=== PATIENT | female | born 1995 | race Caucasian/White ===

== ENCOUNTER 2023-11-24 21:13 | Emergency (ER) | payer MEDICARE, SELFPAY ==
[2023-11-24 21:21] VITALS: BP 140/87; PULSE 100; RESP 20; TEMP 36.1; O2SAT 98
--- NOTE | 2023-11-24 22:03 | ED.GENADULT ---
HPI - General Adult General Chief complaint: Upper Respiratory Infection Stated complaint: sick History of Present Illness HPI narrative: 28yo woman h/o asthma presents with numerous upper respiratory infection symptoms - congestion, nasal burning, cough, sore throat, chest tightness, wheezing for the past 5 days. Related Data Allergies Allergy/AdvReac Type Severity Reaction Status Date / Time Latex, Natural Rubber Allergy Mild hives Verified 11/06/23 10:08 keflex Allergy Mild vomiting Uncoded 11/06/23 10:08 Review of Systems Review of Systems: All systems reviewed & are unremarkable except as noted in HPI and below Constitutional: Constitutional: Reports chills and Reports fever(s) ENT: Denies dysphagia and Denies dizziness Cardiovascular: Cardiovascular: Denies chest pain Respiratory: Respiratory: Reports chest congestion, Reports cough, Reports dyspnea and Reports wheezing Gastrointestinal: Gastrointestinal: Denies abdominal pain PMFSH Past Medical History Medical History Hypertension Social History Social History Smoking status: Never smoker Alcohol intake: never Substance use: never Substance use type: marijuana Exam Const: General: healthy appearing and no acute distress Nutritional Appearance: well nourished Orientation/consciousness: patient oriented x3 HENMT: Head: normal to inspection Eyes: Conjunctivae: conjunctivae normal Resp: Effort & Inspection: normal respiratory effort and not labored Auscultation: clear to auscultation bilaterally Cardio: Rate: regular rate Rhythm: regular rhythm Heart sounds: no murmurs GI: Inspection: non-distended Skin: General skin exam: normal color, no jaundice and no pallor Extrem: General: no clubbing, cyanosis or edema Course Vital Signs Vital signs: Vital Signs Temperature 36.1 C L 11/24/23 21:21 Pulse Rate 100 11/24/23 21:21 Respiratory Rate 11/24/23 21:21 Blood Pressure 140/87 11/24/23 21:21 Pulse Oximetry 98 11/24/23 21:21 Oxygen Delivery Room Air 11/24/23 21:21 Temperature 36.1 C L 11/24/23 21:21 Pulse Rate 100 11/24/23 21:21 Respiratory Rate 20 11/24/23 21:21 Blood Pressure 140/87 11/24/23 21:21 Pulse Oximetry 98 11/24/23 21:21 Oxygen Delivery Room Air 11/24/23 21:21 Medical Decision Making MDM Narrative Medical decision making narrative: acute upper respiratory infection with pain from rhinosinusitis; clear lungs Vital Signs Vital Signs: Vital Signs Temperature 36.1 C L 11/24/23 21:21 Pulse Rate 100 11/24/23 21:21 Respiratory Rate 20 11/24/23 21:21 Blood Pressure 140/87 11/24/23 21:21 Pulse Oximetry 98 11/24/23 21:21 Oxygen Delivery Room Air 11/24/23 21:21 Temperature 36.1 C L 11/24/23 21:21 Pulse Rate 100 11/24/23 21:21 Respiratory Rate 20 11/24/23 21:21 Blood Pressure 140/87 11/24/23 21:21 Pulse Oximetry 98 11/24/23 21:21 Oxygen Delivery Room Air 11/24/23 21:21 Lab Data Labs: Lab Results 11/24/23 Range/Units 21:35 Influenza A (RT-PCR) Pending Influenza B (RT-PCR) Pending RSV (RT-PCR) Pending SARS-CoV-2 RNA (RT-PCR) Pending Group A Strep (PCR) Pending Discharge Plan Discharge Clinical Impression: Acute viral syndrome Patient Disposition: Home, Self-Care Condition: Stable Instructions: Antibiotic Form Additional Instructions: Your symptoms are the result of a viral respiratory infection. The viral infection inflames the tissues of your nose, sinuses, throat, trachea, and lungs. Take the prescribed steroi Dexamethasone to help your symptoms. For congestion, take the prescribed Pseudoephrine as needed. You can continue to take Albuterol as needed for wheezing and Ibuprofen as needed for pain and fever. Prescriptions: New dexamethasone 4 mg tablet
[2023-11-24 22:07] LABS: Strep Group A RT-PCR NOT DETECTED (Negative)
[2023-11-24] MEDS: dexAMETHasone SOD PHOS INJ 10 MG/ML 1 ML VIAL IM (22:09)
[2023-11-24] MEDS: KETOROLAC (*BKC) 60 MG/2 ML VIAL IM (22:12)
[2023-11-24 22:14] LABS: SARS-CoV-2 RNA PCR Negative (Negative)
[2023-11-24 22:15] LABS: Influenza A QL RT-PCR Negative (Negative); Influenza B QL RT-PCR Negative (Negative); RSV RNA, RT-PCR Negative (Negative)
--- NOTE | 2023-11-24 22:17 | PC.NURSE ---
patient medicated per order, see MAR. update provided including lab results.
== END 2023-11-24 22:30 | disposition home or self-care (01) ==
PROVIDERS: Emergency Provider Emergency Medicine; PCP Family Medicine
DX: B34.9 Viral infection, unspecified (principal); I10 Essential (primary) hypertension; Z20.822 Contact with and (suspected) exposure to COVID-19
CPT/HCPCS: 87637; 87651; 96372; 99284; J1100; J1885

== ENCOUNTER 2023-11-27 09:30 | Outpatient (CLI) | payer MEDICARE, SELFPAY ==
[2023-11-27 09:48] LABS: Basophils Absolute Auto 0.01 K/mm3 (0.00-0.10); Basophils Percent Auto 0.1 % (0.0-1.0); Hematocrit 39.6 % (35.0-49.0); Hemoglobin 12.8 g/dL (12.0-15.0); Immature Granulocyte Absolute 0.02 K/mm3 (0.00-0.00); Immature Granulocyte Percent A 0.3 % (0.0-0.0); Lymphocytes Absolute Auto 1.97 K/mm3 (1.10-4.50); Mean Corpuscular HGB Conc 32.3 g/dL (32.0-36.0); Mean Corpuscular Hemoglobin 27.7 pg (27.0-31.0); Mean Corpuscular Volume 85.7 fL (78.0-102.0); Mean Platelet Volume 8.6 fl (9.2-11.8); Monocytes Absolute Auto 0.31 K/mm3 (0.10-0.90); Monocytes Percent Auto 4.1 % (2.0-11.0); Neutrophils Absolute Auto 5.3 K/mm3 (1.7-7.2); Neutrophils Percent Auto 69.5 % (50.0-70.0); Platelet Count Result 290 K/mm3 (150-420); Red Blood Count 4.62 M/mm3 (4.20-5.40); Red Cell Distribution Width 13.6 % (11.6-14.4); White Blood Count 7.6 K/mm3 (4.8-10.8)
[2023-11-27 10:00] LABS: Hemoglobin A1C 5.2 % (<5.7)
[2023-11-27 10:44] LABS: HIV 1 P24 AG Negative (Negative); HIV 1/2 AB Negative (Negative)
[2023-11-27 11:00] LABS: Alanine Aminotransferase 33 U/L (14-59); Albumin Level 3.7 g/dL (3.4-5.0); Alkaline Phosphatase 49 U/L (46-116); Anion Gap 8 mmol/L (8-16); Aspartate Amino Transferase 15 U/L (15-37); Bilirubin,Total 0.3 mg/dL (0.00-1.00); Blood Urea Nitrogen 14 mg/dL (7-18); Carbon Dioxide 28 mmol/L (21-32); Chloride 106 mmol/L (98-108); Cholesterol 185 mg/dL (0-200); Estimated Glomerular Filt Rate > 60; Glucose 108 mg/dL (70-99); HDL Direct 44 mg/dL (40-60); LDL Cholesterol Calculated 130 mg/dL (<130); Osmolality Calculated 295 mOsm/kg (285-295); Potassium 4.4 mmol/L (3.5-5.1); Sodium 142 mmol/L (136-145); Total Protein 7.1 g/dL (6.4-8.2); Triglycerides 57 mg/dL (0-150)
[2023-11-27 11:03] LABS: Thyroid Stimulating Hormone Reflex 0.32 u/IU/mL (0.36-3.74)
[2023-11-27 11:22] LABS: Free T4 Free Thyroxine Reflex 1.21 ng/dL (0.76-1.46)
[2023-12-06 07:47] LABS: Herpes Simplex Type 1 DNA PCR NOT DETECTED; Herpes Simplex Type 2 DNA PCR NOT DETECTED
[2023-12-07 19:53] LABS: Hepatitis A Antibody IgM Nonreactive; Hepatitis B Core Antibody Nonreactive (Nonreactive); Hepatitis B Surface Antigen Nonreactive (Nonreactive); Hepatitis C Virus Antibody Nonreactive
== END 2023-11-27 09:31 | disposition home or self-care (01) ==
LOC: CHSLAB 09:32
PROVIDERS: PCP Family Medicine; Visit Provider Family Medicine
DX: R74.01 Elevation of levels of liver transaminase levels (principal); Z20.2 Contact with and (suspected) exposure to infections with a predominantly sexual mode of transmission; I10 Essential (primary) hypertension; E11.9 Type 2 diabetes mellitus without complications
CPT/HCPCS: 36415; 80053; 80061; 80074; 83036; 84439; 84443; 85025; 87529; 87661; 87806

== ENCOUNTER 2023-12-02 18:52 | Emergency (ER) | payer MEDICARE, SELFPAY ==
[2023-12-02] VITALS (15 sets, daily range): BP systolic 131–163; BP diastolic 91–108; PULSE 73–113; RESP 12–24; TEMP 36.6; O2SAT 98–100
--- NOTE | ~2023-12-02 | CT_ITS ---
EXAMINATION: CT brain wo con DATE: 12/02/2023 19:31 INDICATION: numbness right face . TECHNIQUE: Computed tomography (CT) of the head was performed without intravenous contrast. The mA wa s adjusted according to patient size. Iterative reconstruction technique was employed. The dose-lengt h product was 605.33 mGy-cm. COMPARISON: None. FINDINGS: No acute intracranial hemorrhage or extra-axial fluid collection. No hydrocephalus, mass, or herniation. No acute ischemic infarct. Unremarkable dural venous sinus attenuation. No acute osseous abnormality. The aerated spaces are clear. IMPRESSION: No acute intracranial process. Reviewed, dictated and finalized at location K. [employer]
--- NOTE | ~2023-12-02 | XR_ITS ---
EXAMINATION: XR chest 2V Exam Date/Time: 12/02/2023 19:20 DOG CATCHER HISTORY: sob Comparison: None. RESULT: Lines, tubes, and devices: None. Lungs and pleura: Clear. Cardiomediastinal silhouette: Normal. Other: No acute osseous or upper abdominal finding. IMPRESSION: No acute cardiopulmonary process. Reviewed, dictated and finalized at location K. CATCHER
--- NOTE | 2023-12-02 18:53 | ECG_ITS ---
Measurements Intervals [place] Rate: 81 P: 0 DC: 110 QRS: 54 QRSD: 89 T: 42 QT: 388 QTc: 453 Interpretive Statements SINUS RHYTHM WITH SINUS ARRHYTHMIA WITH SHORT DC INTERVAL NO PREVIOUS ECG AVAILABLE FOR COMPARISON Electronically Signed On 12-03-2023 16:17:10 VIDEO NETWORK ENGINEER by Comfort Aguilar M.D.
--- NOTE | 2023-12-02 18:56 | ED.SOB ---
HPI - SOB/Dyspnea General Chief Complaint: Shortness of Breath/Dyspnea Stated Complaint: high blood pressure Time Seen by Provider: 12/02/23 18:53 Source: patient Mode of arrival: ambulatory Limitations: no limitations History of Present Illness HPI Narrative: Patient is a 28-year-old female with general anxiety here with right face and right chest numbness since last night. She also has lots of anxiety going on at this time and some increased blood pressure and she stopped her medicine 3 days ago for blood pressure. Also some shortness of breath where she has been seeing her primary doctor for the last 2 weeks and is on antibiotics and steroids and inhalers. MD elicited complaint: shortness of breath and pain with inspiration Onset (ago): week(s) (2) Context: recent illness Timing: constant Severity: moderate Exacerbating factors: nothing Relieving factors: nothing Associated symptoms: cough, wheezing, sense of impending doom and chest congestion Treatment prior to arrival: bronchodilator Related Data Home oxygen amount: none Home Medications Medication Instructions Recorded Confirmed lamotrigine 150 mg tablet 150 mg PO DAILY 11/24/23 12/02/23 (Lamictal) lisinopril 10 mg tablet (Zestril) 10 mg PO DAILY 11/24/23 12/02/23 olanzapine 10 mg tablet (Zyprexa) 10 mg PO DAILY 11/24/23 12/02/23 olanzapine 5 mg tablet (Zyprexa) 5 mg PO DAILY 11/24/23 12/02/23 Allergies Allergy/AdvReac Type Severity Reaction Status Date / Time Latex, Natural Rubber Allergy Mild hives Verified 12/02/23 19:00 keflex Allergy Mild vomiting Uncoded 12/02/23 19:00 Review of Systems Review of Systems: All systems reviewed & are unremarkable except as noted in HPI and below Constitutional: Constitutional: Reports no additional constitutional complaints Eyes: Eyes: Reports no additional eye complaints ENT: Reports system reviewed and no additional complaints, except as documented Cardiovascular: Cardiovascular: Reports no additional cardiovascular complaints Respiratory: Respiratory: Reports no additional respiratory complaints Gastrointestinal: Gastrointestinal: Reports no additional gastrointestinal complaints Genitourinary: Genitourinary: Reports no additional female genitourinary complaints Musculoskeletal: Musculoskeletal: Reports no additional musculoskeletal complaints Integumentary/Breasts: Skin/Breast: Reports system reviewed and no additional complaints, except as docu Neurologic: Reports system reviewed and no additional complaints, except as documented Psychiatric: Psychiatric: Reports no additional psychiatric complaints Endocrine: Endocrine: Reports no additional endocrine complaints Hematologic/Lymphatic: Hematologic/Lymphatic: Reports no additional hematologic/lymphatic complaints Allergic/Immunologic: Allergic/Immunologic: Reports no additional allergic/immunologic complaints [facility] Past Medical History Medical History Hypertension Social History Social History Smoking status: Never smoker Alcohol intake: never Substance use: never Substance use type: marijuana Exam Const: General: healthy appearing Nutritional Appearance: well nourished Orientation/consciousness: patient oriented x3 HENMT: Head: normal to inspection Ears: external ears normal Face/Nose/Sinus: Normal external nose present Eyes: Conjunctivae: conjunctivae normal Pupils: Equal, round and reactive pupils present EOM: EOMs intact bilaterally Neck: Neck: normal visual inspection Chest: Chest palpation & inspection: normal inspection of the chest Resp: Effort & Inspection: normal respiratory effort and not labored Auscultation: clear to auscultation bilaterally and no crackles Cardio: Rate: regular rate Rhythm: regular rhythm Heart sounds: no murmurs GI: Inspection: non-distended GI Palp: Yes Soft to palpation an
[2023-12-02 19:12] LABS: Basophils Absolute Auto 0.02 K/mm3 (0.00-0.10); Basophils Percent Auto 0.2 % (0.0-1.0); Eosinophils Absolute Auto 0.06 K/mm3 (0.02-0.50); Eosinophils Percent Auto 0.5 % (1.0-6.0); Hematocrit 43.4 % (35.0-49.0); Hemoglobin 13.9 g/dL (12.0-15.0); Immature Granulocyte Absolute 0.07 K/mm3 (0.00-0.00); Immature Granulocyte Percent A 0.6 % (0.0-0.0); Lymphocytes Absolute Auto 4.79 K/mm3 (1.10-4.50); Lymphocytes Percent Auto 38.7 % (18.0-42.0); Mean Corpuscular Hemoglobin 27.4 pg (27.0-31.0); Mean Corpuscular Volume 85.4 fL (78.0-102.0); Mean Platelet Volume 8.6 fl (9.2-11.8); Monocytes Absolute Auto 0.78 K/mm3 (0.10-0.90); Monocytes Percent Auto 6.3 % (2.0-11.0); Neutrophils Absolute Auto 6.7 K/mm3 (1.7-7.2); Neutrophils Percent Auto 53.7 % (50.0-70.0); Platelet Count Result 375 K/mm3 (150-420); Red Blood Count 5.08 M/mm3 (4.20-5.40); Red Cell Distribution Width 13.7 % (11.6-14.4); White Blood Count 12.4 K/mm3 (4.8-10.8)
[2023-12-02 19:26] LABS: D Dimer 0.37 mg/L (0.19-0.50)
[2023-12-02] MEDS: IPRATROPIUM 0.5 MG/ALBUTEROL SULFATE 2.5 MG AMPUL.NEB 3 ML INHALATION (19:26)
[2023-12-02 19:32] LABS: Alanine Aminotransferase 35 U/L (14-59); Alkaline Phosphatase 48 U/L (46-116); Anion Gap 12 mmol/L (8-16); Aspartate Amino Transferase 14 U/L (15-37); Bilirubin,Total 0.5 mg/dL (0.00-1.00); Blood Urea Nitrogen 15 mg/dL (7-18); Calcium 8.9 mg/dL (8.5-10.1); Carbon Dioxide 26 mmol/L (21-32); Chloride 100 mmol/L (98-108); Estimated CRCL calculation 88 ml/min; Estimated Glomerular Filt Rate > 60; Glucose 104 mg/dL (70-99); Osmolality Calculated 286 mOsm/kg (285-295); Potassium 3.7 mmol/L (3.5-5.1); Sodium 138 mmol/L (136-145); Total Protein 7.7 g/dL (6.4-8.2)
[2023-12-02 19:35] LABS: Troponin I < 4.0 ng/L (0.00-60.4)
[2023-12-02 19:51] LABS: SARS-CoV-2 RNA PCR Negative (Negative)
[2023-12-02 19:53] LABS: Appearance Urine Slightly Cloudy (Clear); Bilirubin Urine 1+ (Negative); Blood Urine 3+ (Negative); Color Urine Yellow (Yellow); Glucose Urine UA Negative (Negative); Ketones Urine 1+ (Negative); Leukocyte Esterase Ur 1+ LEU/UL (Negative); Nitrate Urine Negative (Negative); Protein Urine 1+ (Negative); Specific Grav Ur >= 1.030 (1.010-1.020)
[2023-12-02 19:58] LABS: Add Urine Microscopic? YES; RBC Urine 21-50 /hpf (0-2); Squamous Epithelial Cell Urine Many /hpf (Few)
[2023-12-02 19:59] LABS: Bacteria Urine 2+ /hpf; Pregnancy On Board Control Positive; Urine Pregnancy Test Negative
[2023-12-02 19:59] LABS: Influenza A QL RT-PCR Negative (Negative); Influenza B QL RT-PCR Negative (Negative); RSV RNA, RT-PCR Negative (Negative)
[2023-12-02] MEDS: methylPREDNISolone SOD SUCC 125 MG VIAL IV PUSH (19:59)
[2023-12-02] MEDS: diphenhydrAMINE HCl INJ 50 MG/ML VIAL 25 MG IV PUSH (19:59)
--- NOTE | 2023-12-02 20:04 | PC.NURSE ---
pt continues with something is wrong, right chest , neck and face feels numb , while smacking self in the face. dr valiente in in room with pt.
[2023-12-02] MEDS: levoFLOXacin 500 MG TABLET PO (20:19)
--- NOTE | 2023-12-05 14:28 | PC.NURSE ---
urine culture reviewed, not indicative of uti
== END 2023-12-02 20:20 | disposition home or self-care (01) ==
PROVIDERS: Emergency Provider Emergency Medicine; PCP Nurse Practitioner Family
DX: J40 Bronchitis, not specified as acute or chronic (principal); R20.0 Anesthesia of skin; N39.0 Urinary tract infection, site not specified; I10 Essential (primary) hypertension; Z79.899 Other long term (current) drug therapy; Z20.822 Contact with and (suspected) exposure to COVID-19
CPT/HCPCS: 36415; 70450; 71046; 80053; 81001; 81025; 84484; 85025; 85380; 87077; 87086; 87088; 87637; 93005; 94640; 96374; 96375; 99284; A9270; J1200; J2930

== ENCOUNTER 2023-12-05 12:00 | Outpatient (CLI) | payer MEDICARE, SELFPAY ==
[2023-12-05 16:30] LABS: Trichomonas Vag PCR NOT DETECTED (NOT DETECTE)
[2023-12-05 16:53] LABS: Chlamydia trachomatis NOT DETECTED (NOT DETECTE); Neisseria gonorrhoeae PCR NOT DETECTED (NOT DETECTE)
== END 2023-12-05 12:01 | disposition home or self-care (01) ==
LOC: CHSLAB 12:01
PROVIDERS: PCP Family Medicine; Visit Provider Family Medicine
DX: Z11.3 Encounter for screening for infections with a predominantly sexual mode of transmission (principal); Z20.2 Contact with and (suspected) exposure to infections with a predominantly sexual mode of transmission
CPT/HCPCS: 87491; 87591; 87661

== ENCOUNTER 2024-03-19 12:21 | Emergency (ER) | payer MEDICARE, SELFPAY ==
[2024-03-19] VITALS (17 sets, daily range): BP systolic 135–152; BP diastolic 81–102; PULSE 70–88; RESP 16–18; TEMP 36–36.3; O2SAT 81–100
--- NOTE | 2024-03-19 12:43 | ED.ABDPAIN ---
HPI - Abdominal Pain General Chief Complaint: Nausea/Vomiting/Diarrhea Stated Complaint: vomiting Time Seen by Provider: 03/19/24 12:34 Source: patient Mode of arrival: ambulatory History of Present Illness HPI narrative: Patient is a 29-year-old female with a significant past medical history presents today with nausea vomiting. Patient states she has had nausea vomiting for the last week now. She states that she has a history of high blood pressure and also takes multiple psych meds. She states that she is taking blood pressure meds in the last 3 months because she cannot find them and the pharmacy said that she already filled it but she could not find them today she is waiting to get a refill on those. She states she is not taking her psych meds in the last 3 days because she is unable to hold anything down because of nausea vomiting. She states she is very dehydrated and even is not able hold down liquids or Pedialyte. She denies any abdominal pain. MD elicited complaint: other ( Nausea vomiting) Onset (ago): day(s) Radiation: none Exacerbating factors: vomiting Relieving factors: nothing Associated symptoms: nausea and vomiting Related Data Allergies Allergy/AdvReac Type Severity Reaction Status Date / Time Latex, Natural Rubber Allergy Mild hives Verified 03/19/24 14:28 keflex Allergy Mild vomiting Uncoded 03/19/24 14:28 Review of Systems Review of Systems: All systems reviewed & are unremarkable except as noted in HPI and below Constitutional: Constitutional: Reports as per HPI Eyes: Eyes: Reports no additional eye complaints ENT: Reports system reviewed and no additional complaints, except as documented Cardiovascular: Cardiovascular: Reports no additional cardiovascular complaints Respiratory: Respiratory: Reports no additional respiratory complaints Gastrointestinal: Gastrointestinal: Reports as per HPI, Reports nausea and Reports vomiting Genitourinary: Genitourinary: Reports no additional female genitourinary complaints Musculoskeletal: Musculoskeletal: Reports no additional musculoskeletal complaints Integumentary/Breasts: Skin/Breast: Reports system reviewed and no additional complaints, except as docu Neurologic: Reports system reviewed and no additional complaints, except as documented Psychiatric: Psychiatric: Reports no additional psychiatric complaints Endocrine: Endocrine: Reports no additional endocrine complaints Hematologic/Lymphatic: Hematologic/Lymphatic: Reports no additional hematologic/lymphatic complaints Allergic/Immunologic: Allergic/Immunologic: Reports no additional allergic/immunologic complaints PMFSH Past Medical History Medical History Hypertension Social History Social History Smoking status: Never smoker Alcohol intake: never Substance use: never Substance use type: marijuana Exam Const: General: healthy appearing and no acute distress Nutritional Appearance: well nourished Orientation/consciousness: patient oriented x3 Limitations: no limitations HENMT: Head: normal to inspection Ears: external ears normal Face/Nose/Sinus: Normal external nose present Face and sinus: normal facial exam Eyes: Conjunctivae: conjunctivae normal Pupils: Equal, round and reactive pupils present EOM: EOMs intact bilaterally Neck: Neck: normal visual inspection Chest: Chest palpation & inspection: normal inspection of the chest Resp: Effort & Inspection: normal respiratory effort Auscultation: clear to auscultation bilaterally Cardio: Rate: regular rate Rhythm: regular rhythm GI: GI Palp: Yes Soft to palpation Auscultation: normal bowel sounds : General: Yes bladder normal to palpation Back/Spine/Pelvis: Back: no CVA tenderness Skin: General skin exam: normal color Rashes: no rashes Wounds: no wounds Neuro: 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
[2024-03-19] MEDS: ONDANSETRON INJ 4 MG/2 ML VIAL IV PUSH (12:52)
[2024-03-19] MEDS: PANTOPRAZOLE SODIUM IV 40 MG VIAL IV PUSH (12:53)
[2024-03-19] MEDS: SODIUM CHLORIDE 0.9% IV 1,000 ML 999 ML IV CONT ×2 (12:53→14:03)
[2024-03-19 13:01] LABS: Basophils Absolute Auto 0.01 K/mm3 (0.00-0.10); Basophils Percent Auto 0.1 % (0.0-1.0); Hemoglobin 14.5 g/dL (12.0-15.0); Immature Granulocyte Absolute 0.02 K/mm3 (0.00-0.00); Immature Granulocyte Percent A 0.2 % (0.0-0.0); Lymphocytes Absolute Auto 2.39 K/mm3 (1.10-4.50); Lymphocytes Percent Auto 24.3 % (18.0-42.0); Mean Corpuscular Hemoglobin 28.2 pg (27.0-31.0); Mean Corpuscular Volume 85.4 fL (78.0-102.0); Mean Platelet Volume 8.5 fl (9.2-11.8); Monocytes Absolute Auto 0.67 K/mm3 (0.10-0.90); Monocytes Percent Auto 6.8 % (2.0-11.0); Neutrophils Absolute Auto 6.74 K/mm3 (1.70-7.20); Neutrophils Percent Auto 68.6 % (50.0-70.0); Platelet Count Result 349 K/mm3 (150-420); Red Blood Count 5.15 M/mm3 (4.20-5.40); Red Cell Distribution Width 13.2 % (11.6-14.4); White Blood Count 9.8 K/mm3 (4.8-10.8)
[2024-03-19] MEDS: lisinopriL 10 MG TABLET PO (13:07)
[2024-03-19 13:20] LABS: Alanine Aminotransferase 21 U/L (14-59); Albumin Level 3.8 g/dL (3.4-5.0); Alkaline Phosphatase 53 U/L (46-116); Anion Gap 13 mmol/L (4-12); Aspartate Amino Transferase 13 U/L (15-37); Bilirubin,Total 0.6 mg/dL (0.00-1.00); Blood Urea Nitrogen 8 mg/dL (7-18); Calcium 9.6 mg/dL (8.5-10.1); Carbon Dioxide 24 mmol/L (21-32); Chloride 102 mmol/L (98-108); Estimated CRCL calculation 103 ml/min; Estimated Glomerular Filt Rate > 60; Glucose 103 mg/dL (70-99); Lipase 40 U/L (16-77); Osmolality Calculated 286 mOsm/kg (285-295); Potassium 3.8 mmol/L (3.5-5.1); Sodium 139 mmol/L (136-145); Total Protein 8.2 g/dL (6.4-8.2)
[2024-03-19 13:23] LABS: Lactic Acid Reflex 1.5 mmol/L (0.4-2.0)
[2024-03-19 13:52] LABS: Pregnancy On Board Control Positive; Urine Pregnancy Test Negative
[2024-03-19] MEDS: PROCHLORPERAZINE EDISYLATE 10 MG/2 ML VIAL IV PUSH (14:02)
[2024-03-19 14:25] LABS: Appearance Urine Cloudy (Clear); Blood Urine 1+ (Negative); Color Urine Yellow (Yellow); Glucose Urine UA Negative (Negative); Ketones Urine Trace (Negative); Protein Urine Trace (Negative)
[2024-03-19 14:26] LABS: Add Urine Microscopic? YES; Bacteria Urine 2+ /hpf; Bilirubin Urine Negative (Negative); Leukocyte Esterase Ur 3+ LEU/UL (Negative); Nitrate Urine Negative (Negative); RBC Urine 0-2 /hpf (0-2); Squamous Epithelial Cell Urine Few /hpf (Few); Trichomonas Urine Present /hpf; Urobilinogen Urine Negative mg/dL (0.2-1.0); WBC Urine >75 /hpf (0-3)
--- NOTE | 2024-03-21 17:37 | PC.NURSE ---
pt called re: culture reports. no answer. message left to return call
--- NOTE | 2024-03-21 18:29 | PC.NURSE ---
final std panel report and final urine culture report reviewed. >[id number] Group b Streptococcus isolated in urine. pt prescribed macrobid at discharge. sensitivity report shows susceptibility to macrobid. no change in tx of UTI. std panel shows positive for trichomonas. erp dr bailey reviewed these reports and new prescription ordered. pt contacted via phone and instructed to continue the macrobid to completion and to fill new rx of flagyl 500mg 2x day for 7 days. new prescription called in to [facility] in [place]. pt voices understanding.
== END 2024-03-19 14:39 | disposition home or self-care (01) ==
PROVIDERS: Emergency Provider Family Medicine; PCP Nurse Practitioner Family
DX: K52.9 Noninfective gastroenteritis and colitis, unspecified (principal); N39.0 Urinary tract infection, site not specified; I10 Essential (primary) hypertension
CPT/HCPCS: 36415; 80053; 81001; 81025; 83605; 83690; 85025; 87077; 87086; 87088; 96361; 96374; 96375; 99284; A9270; C9113; J0780; J2405; J7030

== ENCOUNTER 2024-03-24 07:58 | Outpatient (CLI) | payer MEDICARE, SELFPAY ==
--- NOTE | 2024-03-24 08:16 | ECG_ITS ---
Test Date: 2024-03-24 08:23:46 Measurements Intervals [place] Rate: 81 P: 73 VT: 108 QRS: 67 QRSD: 93 T: 60 QT: 385 QTc: 448 Interpretive Statements SINUS RHYTHM WITH SHORT VT INTERVAL No previous ECG available for comparison Electronically Signed On 03-24-2024 14:22:33 CDT by Comfort Aguilar M.D.
--- NOTE | 2024-04-01 21:51 | WPDPFTINT ---
PFT Procedure Performed PFT Procedure Performed Spirometry with Pre/Post Bronchodilator Plethysmography (Lung Vol) Diffusing Cap (DLCO) Flow Vol Loop PFT Interpretation DOS: 03/24/2024 REQUESTING: Lora Overton APRN REASON FOR TESTING: Shortness of breath PULMONARY FUNCTION TESTS The patient had variable effort during testing. Spirometry: The pre-bronchodilator FEV1 is 3.56 L, 109%. The pre-bronchodilator FVC is 4.36 L, 111%. The FEV1/FVC ratio is 82%. After bronchodilator, the FEV1 is unchanged. The FVC is 4.24 L, 108%, a 3% decrease. The FEV1/FVC ratio is 84%. Lung volumes: The total lung capacity is 5.65 L, 98%. The residual volume is 1.29 L, 72%. The RV/TLC is 23%. Airway resistance is mildly elevated. Diffusion: DLCO is 32.8, 104%. The DLCO/VA is 6.68, 144%. Flow volume loop: The flow volume loop is normal on the 1st attempt, and subsequent inspiratory limbs are progressively more irregular in shape. IMPRESSION: This full pulmonary function test shows normal spirometry without airflow obstruction, without response to bronchodilator, normal lung volumes and normal diffusion. No prior studies for comparison. Christel Moreno MD
== END 2024-03-24 07:59 | disposition home or self-care (01) ==
PROVIDERS: PCP Nurse Practitioner Family; Visit Provider Nurse Practitioner Family
DX: R61 Generalized hyperhidrosis (principal); R06.02 Shortness of breath
CPT/HCPCS: 36415; 84443; 93005; 94060; 94726; 94729

== ENCOUNTER 2024-04-09 09:51 | Outpatient (CLI) | payer MEDICARE, SELFPAY ==
[2024-04-09 10:25] LABS: Appearance Urine Clear (Clear); Bilirubin Urine Negative (Negative); Blood Urine 3+ (Negative); Color Urine Light Yellow (Yellow); Glucose Urine UA Negative (Negative); Ketones Urine Negative (Negative); Leukocyte Esterase Ur Trace (Negative); Nitrate Urine Negative (Negative); Protein Urine Negative (Negative); Specific Grav Ur <= 1.005 (1.010-1.020); Urobilinogen Urine 0.2 mg/dL (0.2-1.0)
[2024-04-09 10:29] LABS: Add Urine Microscopic? YES; Bacteria Urine 2+ /hpf; Squamous Epithelial Cell Urine Moderate /hpf (Few)
[2024-04-09 10:34] LABS: Hemoglobin 15.4 g/dL (12.0-15.0); Immature Granulocyte Absolute 0.02 K/mm3 (0.00-0.00); Immature Granulocyte Percent A 0.3 % (0.0-0.0); Lymphocytes Absolute Auto 2.63 K/mm3 (1.10-4.50); Lymphocytes Percent Auto 36.8 % (18.0-42.0); Mean Corpuscular HGB Conc 33.5 g/dL (32-36); Mean Corpuscular Hemoglobin 28.6 pg (27.0-31.0); Mean Corpuscular Volume 85.3 fL (78.0-102.0); Mean Platelet Volume 9.3 fl (9.2-11.8); Monocytes Absolute Auto 0.64 K/mm3 (0.10-0.90); Neutrophils Absolute Auto 3.86 K/mm3 (1.70-7.20); Neutrophils Percent Auto 53.9 % (50.0-70.0); Platelet Count Result 296 K/mm3 (150-420); Red Blood Count 5.39 M/mm3 (4.20-5.40); Red Cell Distribution Width 13.5 % (11.6-14.4); White Blood Count 7.2 K/mm3 (4.8-10.8)
[2024-04-09 11:15] LABS: Prothrombin Time 10.5 Seconds (9.50-12.1)
[2024-04-09 11:24] LABS: Alanine Aminotransferase 65 U/L (14-59); Albumin Level 4.4 g/dL (3.4-5.0); Alkaline Phosphatase 42 U/L (46-116); Anion Gap 14 mmol/L (4-12); Aspartate Amino Transferase 37 U/L (15-37); Bilirubin,Total 0.7 mg/dL (0.00-1.00); Blood Urea Nitrogen 4 mg/dL (7-18); Calcium 9.2 mg/dL (8.5-10.1); Carbon Dioxide 23 mmol/L (21-32); Chloride 98 mmol/L (98-108); Estimated Glomerular Filt Rate > 60; Glucose 109 mg/dL (70-99); NT Pro B Type Natriuretic Pept 19 pg/mL (0-125); Osmolality Calculated 277 mOsm/kg (285-295); Potassium 3.9 mmol/L (3.5-5.1); Sodium 135 mmol/L (136-145); Total Protein 7.8 g/dL (6.4-8.2); Troponin I 4.4 ng/L (0.00-60.4)
[2024-04-09 11:26] LABS: Beta HCG Quantitative < 1.00 mIU/mL (0-6)
[2024-04-09 16:38] LABS: Lipase 43 U/L (16-77)
[2024-04-12 12:14] LABS: Thyroid Peroxidase Antibodies 4 IU/mL (<9)
[2024-04-14 12:44] LABS: H pylori, Urea Breath NOT DETECTED (NOT DETECTED)
[2024-04-15 05:08] LABS: Carcinoembryonic Antigen <2.0 ng/mL
== END 2024-04-09 09:52 | disposition home or self-care (01) ==
LOC: CHSLAB 09:52
PROVIDERS: PCP Nurse Practitioner Family; Visit Provider Nurse Practitioner Family
DX: I10 Essential (primary) hypertension (principal); R39.9 Unspecified symptoms and signs involving the genitourinary system; R74.8 Abnormal levels of other serum enzymes; R06.02 Shortness of breath; Z34.90 Encounter for supervision of normal pregnancy, unspecified, unspecified trimester; R19.7 Diarrhea, unspecified; R11.2 Nausea with vomiting, unspecified; R07.9 Chest pain, unspecified; K92.1 Melena; R79.89 Other specified abnormal findings of blood chemistry
CPT/HCPCS: 36415; 80053; 81001; 82378; 83013; 83690; 83880; 84484; 84702; 85025; 85610; 86376; 87077; 87086; 87088

== ENCOUNTER 2024-04-15 13:46 | Outpatient (CLI) | payer MEDICARE, SELFPAY ==
--- NOTE | 2024-04-15 13:55 | ECHO_ITS ---
Patient Info Name: Fariha Sparks Age: 29 years : 1995 Gender: Female Ht: 67 in Wt: 243 lbs BSA: 2.33 m2 HR: 87 bpm BP: 127 / 83 mmHg Technical Quality: Good Exam Date: 04/15/2024 1:50 PM Exam Location: [facility] [place] Patient Status: Outpatient Admit Date: 04/15/2024 Staff Ordering Physician: Lora Overton APRN Room Service Waiter/Waitress: Augusto Hemphill RDCS Attending Provider: Lora Overton APRN Exam Type: CA echo doppler color flow Study Info Indications R94.31 - Abnormal electrocardiogram ECG EKG Complete two-dimensional, color flow and Doppler transthoracic echocardiogram is performed. Summary 1. Complete two-dimensional, color flow and Doppler transthoracic echocardiogram is performed. 2. Left ventricular chamber dimension is normal. 3. Left ventricular systolic function is normal, estimated at 55-60%. 4. The left ventricular diastolic function is normal. 5. E/e' 7 is not elevated. 6. No pulmonary hypertension, estimated pulmonary arterial systolic pressure is 24 mmHg. Left Ventricle E/e' 7 is not elevated. Left ventricular chamber dimension is normal. Left ventricular systolic function is normal, estimated at 55-60%. The left ventricular diastolic function is normal. Right Ventricle Right ventricular chamber dimension is normal. Right ventricular systolic function is normal. Left Atria Left atrial chamber dimension is normal. Right Atria Right atrial chamber dimension is normal. Aortic Valve The aortic valve is trileaflet. There is no aortic valve stenosis. There is no aortic valve regurgitation. Pulmonic Valve There is no pulmonic regurgitation. Mitral Valve There is no mitral valve stenosis. There is no mitral valve regurgitation. Tricuspid Valve There is no tricuspid valve regurgitation. No pulmonary hypertension, estimated pulmonary arterial systolic pressure is 24 mmHg. Pericardium/Pleural There is no pericardial effusion. Inferior Vena Cava Normal inferior vena cava with >50% collapse upon inspiration consistent with normal right atrial pressure, 5 mmHg. Aorta The aortic root size at the sinus of Valsalva is normal. Left Ventricular Outflow Tract Name Value Normal LVOT 2D LVOT Diameter 2.0 cm LVOT Doppler LVOT Peak Velocity 124 cm/s LVOT Peak Gradient 6 mmHg LVOT Mean Gradient 3 mmHg LVOT VTI 23 cm LVOT VTI/AV VTI Ratio 0.9 LVOT Stroke Volume 75 ml Pulmonic Valve Name Value Normal PV Doppler PV Peak Velocity 115 cm/s PV Peak Gradient 5 mmHg Mitral Valve Name Value Normal MV Doppler
== END 2024-04-15 13:47 | disposition home or self-care (01) ==
PROVIDERS: PCP Nurse Practitioner Family; Visit Provider Nurse Practitioner Family
DX: R53.82 Chronic fatigue, unspecified (principal); R06.02 Shortness of breath; I10 Essential (primary) hypertension; R94.31 Abnormal electrocardiogram [ECG] [EKG]
CPT/HCPCS: 93306

== ENCOUNTER 2024-04-26 16:48 | Outpatient (CLI) | payer MEDICARE, SELFPAY ==
[2024-04-26 17:39] LABS: Amphetamine Screen Urine Negative (Negative); Barbiturate Screen Urine Negative (Negative); Benzodiazepines Screen Urine Negative (Negative); Cannabinoid Screen Urine Positive (Negative); Cocaine Screen Urine Negative (Negative); Methadone Screen Urine Negative (Negative); Opiate Screen Urine Negative (Negative); Phencyclidine Screen Urine Negative (Negative)
[2024-04-26 17:51] LABS: Ferritin 29 ng/mL (8-252); GGT 25 U/L (5-55); Iron 36 ug/dL (50-170); Percent Iron Saturation 15 % (12-57)
[2024-04-27 11:59] LABS: Alpha-1-Antitrypsin, QN 122 mg/dL (83-199)
[2024-04-27 12:33] LABS: Ceruloplasmin 21 mg/dL (14-48)
[2024-04-28 08:34] LABS: Anti Nuclear Antibody Pattern Nuclear, Homogeneous; Anti Nuclear Antibody Titer 1:40 titer
[2024-05-04 12:58] LABS: Actin Antibody (IgG) <20 U (<20)
[2024-05-07 15:59] LABS: ALT 15 U/L (6-29); Alpha-2-Macroglobulin 185 mg/dL (106-279); Apolipoprotein A1 116 mg/dL (101-198); Fibrosis Score 0.07; Fibrosis Stage F0; GGT 14 U/L (3-40); Haptoglobin 119 mg/dL (43-212); Necroinflammat Act Grade A0; Reference ID 5038373; Total Bilirubin 0.3 mg/dL (0.2-1.2)
[2024-05-08 10:58] LABS: Mitochondrial (M2) Ab (IgG) <20.0 U
== END 2024-04-26 16:49 | disposition home or self-care (01) ==
LOC: CHSLAB 16:49
PROVIDERS: PCP Nurse Practitioner Family; Visit Provider Nurse Practitioner Family
DX: K92.1 Melena (principal); R74.8 Abnormal levels of other serum enzymes; R39.9 Unspecified symptoms and signs involving the genitourinary system; F12.91 Cannabis use, unspecified, in remission; Z79.899 Other long term (current) drug therapy; G89.29 Other chronic pain
CPT/HCPCS: 36415; 80307; 81596; 82103; 82390; 82728; 82977; 83516; 83520; 83540; 83550; 86038; 86039

== ENCOUNTER 2024-04-29 13:32 | Outpatient (CLI) | payer MEDICARE, SELFPAY ==
[2024-04-29 13:53] LABS: Occult Blood Negative (Negative)
[2024-04-29 14:38] LABS: Toxigenic C. Diff POSITIVE (NEGATIVE)
[2024-05-04 15:24] LABS: Fecal Fat, Ql Normal (Normal)
[2024-05-07 22:33] LABS: Pancreatic Elastase, Stool >500 mcg/g
[2024-05-08 17:03] LABS: Calprotectin, Stool 217 mcg/g
== END 2024-04-29 13:33 | disposition home or self-care (01) ==
PROVIDERS: PCP Nurse Practitioner Family; Visit Provider Nurse Practitioner Family
DX: R11.2 Nausea with vomiting, unspecified (principal); R19.7 Diarrhea, unspecified; K92.1 Melena
CPT/HCPCS: 82272; 82653; 82705; 83993; 87045; 87427; 87449; 87493

== ENCOUNTER 2024-05-05 11:33 | Emergency (ER) | payer MEDICARE, SELFPAY ==
--- NOTE | 2024-05-05 11:38 | ED.PSYCH ---
HPI - Psych General Chief Complaint: Nausea/Vomiting/Diarrhea Stated Complaint: vomiting Time Seen by Provider: 05/05/24 11:37 Source: patient Mode of arrival: ambulatory Limitations: no limitations History of Present Illness HPI Narrative: History of marijuana use, bipolar disorder, PTSD, depression prior suicidal overdose, personality disorder, hypertension, positive JAMEL, a negative stress test with a normal ejection fraction presents to the ED from her PCPs office with -- nausea with vomiting for the last 6 months. The patient has a history of heavy marijuana use. -- History of diarrhea which has now resolved. The patient was positive for C diff and treated with Fidaxomicin, she was unable to complete her course secondary to nausea and vomiting -- numbness and tingling of the fingertips and toes with cramping of her hand. Patient is very anxious . Patient is not able to take her usual medications which include duloxetine, lorazepam, Lumateperone -- Generalized body ache. The patient is unable to walk. -- Vertigo and lightheadedness. -- Significant weight loss in the past few months. Patient states that she is unable to take her medications and eat secondary to her nausea and vomiting. -- patient complains of frequent infections -- patient denies suicidal ideation Onset (ago): week(s) Duration: constant History of same: Yes Relieving factors: none Exacerbating factors: none Context: not taking psychiatric medications Associated psychiatric symptoms: depression and racing thoughts Associated symptoms: nausea and vomiting Treatments prior to arrival: none Related Data Home Medications Medication Instructions Recorded Confirmed duloxetine 60 mg capsule,delayed 60 mg PO DAILY 03/26/24 04/23/24 release (Cymbalta) lorazepam 1 mg tablet (Ativan) 1 mg PO TID PRN 03/26/24 04/23/24 zolpidem 10 mg tablet (Ambien) 10 mg PO QHS 03/26/24 04/23/24 Allergies Allergy/AdvReac Type Severity Reaction Status Date / Time Latex, Natural Rubber Allergy Mild hives Verified 05/05/24 13:44 keflex Allergy Mild vomiting Uncoded 05/05/24 13:44 Review of Systems Review of Systems: All systems reviewed & are unremarkable except as noted in HPI and below Constitutional: Constitutional: Reports as per HPI, Reports no additional constitutional complaints and Reports weakness Eyes: Eyes: Reports as per HPI and Reports no additional eye complaints ENT: Reports system reviewed and no additional complaints, except as documented, Reports as per HPI, Reports vertigo and Reports dizziness Cardiovascular: Cardiovascular: Reports as per HPI and Reports no additional cardiovascular complaints Respiratory: Respiratory: Reports as per HPI and Reports no additional respiratory complaints Gastrointestinal: Gastrointestinal: Reports as per HPI, Reports no additional gastrointestinal complaints, Reports nausea and Reports vomiting Genitourinary: Genitourinary: Reports no additional female genitourinary complaints and Reports as per HPI Musculoskeletal: Musculoskeletal: Reports no additional musculoskeletal complaints, Reports as per HPI, Reports myalgias and Reports muscle cramps Integumentary/Breasts: Skin/Breast: Reports system reviewed and no additional complaints, except as docu and Reports as per HPI Neurologic: Reports system reviewed and no additional complaints, except as documented, Reports as per HPI, Reports vertigo, Reports dizziness and Reports numbness Psychiatric: Psychiatric: Reports no additional psychiatric complaints, Reports as per HPI, Reports anxiety and Reports depression Endocrine: Endocrine: Reports no additional endocrine complaints and Reports as per HPI Hematologic/Lymphatic: Hematologic/Lymphatic: Reports no additional hematologic/lymphatic complaints and Reports as per HPI Allergic/Immunologic: Allergic/Immunologic: Reports no additional allergic/immunologic complaints and Reports as per HPI PMFSH Past Medical History Me
[2024-05-05 11:53] VITALS: BP 139/96; PULSE 101; RESP 28; TEMP 36.2; O2SAT 98
--- NOTE | 2024-05-05 12:02 | ECG_ITS ---
Test Date: 2024-05-05 12:14:11 Measurements Intervals [place] Rate: 87 P: 67 [place]: 125 QRS: 78 QRSD: 90 T: 84 QT: 400 QTc: 483 Interpretive Statements SINUS RHYTHM WITH SINUS ARRHYTHMIA MINIMAL Q WAVES- ANTEROLAT/INF LEADS BASELINE WANDER- V4 BORDERLINE ECG Compared to ECG 03/24/2024 08:23:46 NO SIGNIFICANT CHANGE Electronically Signed On 05-05-2024 12:38:06 CDT by Garret Contreras D.O.
--- NOTE | 2024-05-05 12:10 | PC.NURSE ---
covid test administered and given to blood and plasma laboratory assistant in pt room
[2024-05-05 12:28] LABS: Basophils Absolute Auto 0.01 K/mm3 (0.00-0.10); Basophils Percent Auto 0.1 % (0.0-1.0); Hematocrit 45.5 % (35.0-49.0); Hemoglobin 15.4 g/dL (12.0-15.0); Immature Granulocyte Absolute 0.04 K/mm3 (0.00-0.00); Immature Granulocyte Percent A 0.4 % (0.0-0.0); Lymphocytes Absolute Auto 1.18 K/mm3 (1.10-4.50); Lymphocytes Percent Auto 11.8 % (18.0-42.0); Mean Corpuscular HGB Conc 33.8 g/dL (32-36); Mean Corpuscular Hemoglobin 28.7 pg (27.0-31.0); Mean Corpuscular Volume 84.7 fL (78.0-102.0); Mean Platelet Volume 9.3 fl (9.2-11.8); Monocytes Absolute Auto 0.66 K/mm3 (0.10-0.90); Monocytes Percent Auto 6.6 % (2.0-11.0); Neutrophils Absolute Auto 8.09 K/mm3 (1.70-7.20); Neutrophils Percent Auto 81.1 % (50.0-70.0); Platelet Count Result 337 K/mm3 (150-420); Red Blood Count 5.37 M/mm3 (4.20-5.40); Red Cell Distribution Width 13.7 % (11.6-14.4)
[2024-05-05 12:30] VITALS: BP 134/74; PULSE 78; RESP 18; O2SAT 100
[2024-05-05 12:46] LABS: Lactic Acid Reflex 2.3 mmol/L (0.4-2.0)
[2024-05-05 12:55] LABS: Alanine Aminotransferase 23 U/L (14-59); Albumin Level 4.4 g/dL (3.4-5.0); Alkaline Phosphatase 56 U/L (46-116); Anion Gap 16 mmol/L (4-12); Aspartate Amino Transferase 15 U/L (15-37); Bilirubin,Total 1.2 mg/dL (0.00-1.00); Blood Urea Nitrogen 13 mg/dL (7-18); CRP 0.7 mg/dL (0.0-0.9); Calcium 10.2 mg/dL (8.5-10.1); Carbon Dioxide 21 mmol/L (21-32); Chloride 100 mmol/L (98-108); Creatine Kinase 44 U/L (26-192); Estimated CRCL calculation 90 ml/min; Estimated Glomerular Filt Rate > 60; Glucose 106 mg/dL (70-99); Lipase 40 U/L (16-77); Magnesium 1.8 mg/dL (1.8-2.4); Osmolality Calculated 284 mOsm/kg (285-295); Potassium 3.9 mmol/L (3.5-5.1); Sodium 137 mmol/L (136-145); Total Protein 8.5 g/dL (6.4-8.2)
[2024-05-05 12:56] LABS: Thyroid Stimulating Hormone 2.21 uIU/mL (0.36-3.74); Troponin I 4.4 ng/L (0.00-60.4); Uric Acid 6.3 mg/dL (2.6-6.0)
[2024-05-05 13:03] LABS: SARS-CoV-2 RNA PCR Negative (Negative)
[2024-05-05 13:04] LABS: Influenza A QL RT-PCR Negative (Negative); Influenza B QL RT-PCR Negative (Negative); RSV RNA, RT-PCR Negative (Negative)
[2024-05-05 13:09] LABS: Add Urine Microscopic? YES; Appearance Urine Sl Cloudy (Clear); Bilirubin Urine 2+ (Negative); Blood Urine Negative (Negative); Color Urine Dark Yellow (Yellow); Glucose Urine UA Negative (Negative); Ketones Urine 3+ (Negative); Leukocyte Esterase Ur Negative LEU/UL (Negative); Nitrate Urine Negative (Negative); Protein Urine 2+ (Negative); Specific Grav Ur 1.015 (1.010-1.020); pH Urine 8.5 (5.0-8.0)
[2024-05-05 13:12] LABS: Pregnancy On Board Control Positive; Urine Pregnancy Test Negative
[2024-05-05 13:13] LABS: Bacteria Urine 1+ /hpf; Mucus Urine Moderate /lpf; RBC Urine None seen /hpf (0-2); Squamous Epithelial Cell Urine Many /hpf (Few); WBC Urine 0-3 /hpf (0-3)
[2024-05-05 13:30] VITALS: BP 139/78; PULSE 79; RESP 18; TEMP 36.9; O2SAT 99
[2024-05-05] MEDS: HALOPERIDOL LACTATE 5 MG/ML VIAL IM (13:40)
[2024-05-05] MEDS: LACTATED RINGERS 1,000 ML 999 ML IV CONT (13:42)
[2024-05-05] MEDS: PROCHLORPERAZINE EDISYLATE 10 MG/2 ML VIAL IV PUSH (14:28)
[2024-05-05 14:30] VITALS: BP 150/97; PULSE 66; RESP 16; O2SAT 97
[2024-05-05 14:52] VITALS: BP 149/84; PULSE 80; RESP 16; TEMP 36.6; O2SAT 98
[2024-05-05 15:03] LABS: Reflex Lactic Acid Yes or No Add Lactic
== END 2024-05-05 14:52 | disposition home or self-care (01) ==
PROVIDERS: Emergency Provider Internal Medicine Critical Care Medicine; PCP Nurse Practitioner Family
DX: E86.0 Dehydration (principal); F41.0 Panic disorder [episodic paroxysmal anxiety]; R11.10 Vomiting, unspecified; F12.10 Cannabis abuse, uncomplicated; I10 Essential (primary) hypertension; Z20.822 Contact with and (suspected) exposure to COVID-19
CPT/HCPCS: 36415; 80053; 81001; 81025; 82550; 83605; 83690; 83735; 84443; 84484; 84550; 85025; 86140; 87637; 93005; 96361; 96372; 96374; 99284; J0780; J1630; J7120

== ENCOUNTER 2024-05-19 08:24 | Outpatient (CLI) | payer MEDICARE, SELFPAY ==
--- NOTE | ~2024-05-19 | US_ITS ---
Limited ABDOMINAL ULTRASOUND Ordering provider: Katlin Vogel APRN History: . R74.8 - Abnormal levels of other serum enzymes . Comparison: None. FINDINGS: LIVER: Normal size and echotexture. No focal hepatic lesions or perihepatic fluid collections are aden ntified. Portal vein flow is normal. GALLBLADDER: Cholelithiasis. Stone measures 1.4 x 0.6 x 0.9 CNM. No evidence for sludge, gallbladder wall thickening or pericholecystic fluid collections. Wall thickness is 0.2 cm. A negative sonographi c Vincent's sign was noted. BILIARY DUCTS: No evidence for intra or extrahepatic biliary dilation. Common bile duct measures 2.4 mm in diameter which is within normal limits. PANCREAS: Normal echotexture and size. Tail is partly visualized. IVC: Patent. IMPRESSION: Cholelithiasis with no evidence of cholecystitis. Otherwise, Unremarkable limited ultrasound of the a bdomen. Reviewed, dictated and finalized at location A. IMPRESSION: Cholelithiasis with no evidence of cholecystitis. Otherwise, Unremarkable limit ed ultrasound of the abdomen.
== END 2024-05-19 08:25 | disposition home or self-care (01) ==
LOC: ANHIMG 08:27
PROVIDERS: PCP Nurse Practitioner Family; Visit Provider Nurse Practitioner Family
DX: R74.8 Abnormal levels of other serum enzymes (principal); K80.20 Calculus of gallbladder without cholecystitis without obstruction
CPT/HCPCS: 76705

== ENCOUNTER 2024-05-30 17:57 | Emergency (ER) | payer MEDICARE, SELFPAY ==
[2024-05-30] VITALS (10 sets, daily range): BP systolic 116–160; BP diastolic 65–115; PULSE 68–120; RESP 16–24; TEMP 36.4–36.8; O2SAT 97–100
--- NOTE | 2024-05-30 18:18 | ED.PSYCH ---
HPI - Psych General Chief Complaint: Psychiatric Symptoms Stated Complaint: psych behavior Source: patient and EMS Mode of arrival: ambulatory Limitations: clinical condition History of Present Illness HPI Narrative: Patient is a 29-year-old female with known psychiatric condition. She has a fixed delusion and a prior history of schizophrenia and/or bipolar. Her delusion is that she is being human trafficked and she has a master which is her . She is not suicidal or homicidal. Onset (ago): unknown Duration: constant History of same: Yes Relieving factors: none Exacerbating factors: none Associated psychiatric symptoms: racing thoughts and delusions Associated symptoms: denies other symptoms Treatments prior to arrival: other ( local mental health services have been involved in this case) Related Data Home Medications Medication Instructions Recorded Confirmed duloxetine 60 mg capsule,delayed 60 mg PO DAILY 03/26/24 05/11/24 release (Cymbalta) zolpidem 10 mg tablet (Ambien) 10 mg PO QHS 03/26/24 05/11/24 alprazolam 1 mg tablet (Xanax) 1 mg PO QID PRN Anxiety 05/11/24 05/11/24 dimenhydrinate 50 mg tablet 50 mg PO Q8H PRN Vertigo 05/11/24 05/11/24 fidaxomicin 200 mg tablet (Dificid) 200 mg PO Q12H 05/11/24 05/11/24 lamotrigine 150 mg tablet 200 mg PO DAILY 05/11/24 05/11/24 (Lamictal) Allergies Allergy/AdvReac Type Severity Reaction Status Date / Time Latex, Natural Rubber Allergy Mild hives Verified 05/30/24 18:35 haloperidol [From Haldol] Allergy Other Verified 05/30/24 18:35 keflex Allergy Mild vomiting Uncoded 05/05/24 13:44 Review of Systems Review of Systems: All systems reviewed & are unremarkable except as noted in HPI and below Constitutional: Constitutional: Reports no additional constitutional complaints Eyes: Eyes: Reports no additional eye complaints ENT: Reports system reviewed and no additional complaints, except as documented Cardiovascular: Cardiovascular: Reports no additional cardiovascular complaints Respiratory: Respiratory: Reports no additional respiratory complaints Gastrointestinal: Gastrointestinal: Reports no additional gastrointestinal complaints Genitourinary: Genitourinary: Reports no additional female genitourinary complaints Musculoskeletal: Musculoskeletal: Reports no additional musculoskeletal complaints Integumentary/Breasts: Skin/Breast: Reports system reviewed and no additional complaints, except as docu Neurologic: Reports system reviewed and no additional complaints, except as documented Psychiatric: Psychiatric: Reports no additional psychiatric complaints Endocrine: Endocrine: Reports no additional endocrine complaints Hematologic/Lymphatic: Hematologic/Lymphatic: Reports no additional hematologic/lymphatic complaints Allergic/Immunologic: Allergic/Immunologic: Reports no additional allergic/immunologic complaints PMFSH Past Medical History Medical History Hypertension Social History Social History Years smoked: 0.5 Smoking status: Former smoker Tobacco type: cigars and e-cigarettes/vaping Additional smoking assessment comments: Vaped 1 year Alcohol intake: never Substance use: current Substance use type: marijuana Other substance usage details: Stopped marijuana use 02/2024; Uses CBD gummies 1/day Living arrangements: with family Exam Const: General: healthy appearing Nutritional Appearance: well nourished Orientation/consciousness: patient oriented x3 HENMT: Head: normal to inspection Ears: external ears normal Face/Nose/Sinus: Normal external nose present Eyes: Conjunctivae: conjunctivae normal Pupils: Equal, round and reactive pupils present EOM: EOMs intact bilaterally Neck: Neck: normal visual inspection Chest: Chest palpation & inspection: normal inspection of the chest Resp: Effort & Inspecti
--- NOTE | 2024-05-30 19:13 | ECG_ITS ---
Test Date: 2024-05-30 20:28:20 Measurements Intervals Mackey Rate: 80 P: 29 KS: 130 QRS: 62 QRSD: 92 T: 54 QT: 417 QTc: 482 Interpretive Statements SINUS RHYTHM NONSPECIFIC T-WAVE ABNORMALITY Compared to ECG 05/05/2024 12:14:11 NO SIGNIFICANT CHANGES Electronically Signed On 06-01-2024 15:47:01 CDT by Comfort Aguilar M.D.
--- NOTE | 2024-05-30 19:24 | PC.NURSE ---
Pt pacing room upon arrival and report taken. Pt is yelling and crying about my masters know nothing, don't tell them anything. Pt has visitor by name of Alex here in waiting room. Told visitor to have seat until ERp Dr Gutierrez is done w/ eval. Told pt that Alex is in waiting room to see her and she started having paranoid atttude. Pt speaking in lingo about different stories and nothing makes sense to her or to this RN. Pt then left room, running down giordano to waiting room and started yelling and shouting out of control to alex . Visitor in w/r here to see her is scared and wanting police called. PD called to assisted w/ pt outburst and out of control demeanor . PD arrived and pt screaming out of control, assist back to Rm 5. Med ordered then per ERP.
--- NOTE | 2024-05-30 19:29 | PC.NURSE ---
[place] [employer] here, pt in waiting room and noted slapping the visitor here to see her. Upon PD arrival into wiating room pt became agitated and even louder and more hostile, pulling her hair and talking in lingo and what she calls codes that noone has heard of before . Pt is difficult to redirect. PD here to help calm pt and bring her back to room.
[2024-05-30] MEDS: OLANZapine 10 MG, WATER, STERILE FOR INJECTION 2.1 ML IM (19:35)
--- NOTE | 2024-05-30 20:08 | PC.NURSE ---
Pt is much more calm at this time, she is more relaxed after given Xyprexa and able to calmly communicate. She still has some suspiciousness when someone walks into room, but she is asking for more water to drink. Pt is more alert and able to follow commands.
[2024-05-30 20:23] LABS: Basophils Absolute Auto 0.01 K/mm3 (0.00-0.10); Basophils Percent Auto 0.1 % (0.0-1.0); Hemoglobin 13.7 g/dL (12.0-15.0); Immature Granulocyte Absolute 0.04 K/mm3 (0.00-0.00); Immature Granulocyte Percent A 0.4 % (0.0-0.0); Lymphocytes Absolute Auto 1.62 K/mm3 (1.10-4.50); Lymphocytes Percent Auto 16.2 % (18.0-42.0); Mean Corpuscular HGB Conc 32.6 g/dL (32-36); Mean Corpuscular Hemoglobin 28.6 pg (27.0-31.0); Mean Corpuscular Volume 87.7 fL (78.0-102.0); Monocytes Absolute Auto 0.68 K/mm3 (0.10-0.90); Monocytes Percent Auto 6.8 % (2.0-11.0); Neutrophils Absolute Auto 7.63 K/mm3 (1.70-7.20); Neutrophils Percent Auto 76.5 % (50.0-70.0); Platelet Count Result 268 K/mm3 (150-420); Red Blood Count 4.79 M/mm3 (4.20-5.40); Red Cell Distribution Width 13.2 % (11.6-14.4)
[2024-05-30 20:41] LABS: Add Urine Microscopic? YES; Appearance Urine Clear (Clear); Bilirubin Urine 2+ (Negative); Blood Urine Negative (Negative); Color Urine Dark Yellow (Yellow); Glucose Urine UA Negative (Negative); Ketones Urine 3+ (Negative); Leukocyte Esterase Ur Trace LEU/UL (Negative); Nitrate Urine Negative (Negative); Protein Urine 2+ (Negative); Specific Grav Ur >= 1.030 (1.010-1.020); Urobilinogen Urine 0.2 mg/dL (0.2-1.0)
--- NOTE | 2024-05-30 20:41 | PC.NURSE ---
VS being obtained per protocol for chemical restraints. She wants lights dimmed and to rest. She states she is feeling anxious and overwhelmed and unsure of what is going on. She remains calm at this time, lights dimmed, sitter remains at bedisde.
[2024-05-30 20:46] LABS: Amphetamine Screen Urine Negative (Negative); Bacteria Urine 1+ /hpf; Barbiturate Screen Urine Negative (Negative); Benzodiazepines Screen Urine Positive (Negative); Cannabinoid Screen Urine Positive (Negative); Cocaine Screen Urine Negative (Negative); Methadone Screen Urine Negative (Negative); Mucus Urine Moderate /lpf; Opiate Screen Urine Negative (Negative); Phencyclidine Screen Urine Negative (Negative); RBC Urine 0-2 /hpf (0-2); Squamous Epithelial Cell Urine Few /hpf (Few); WBC Urine 0-3 /hpf (0-3)
[2024-05-30 20:47] LABS: Pregnancy On Board Control Positive; Urine Pregnancy Test Negative
[2024-05-30 20:54] LABS: Alanine Aminotransferase 16 U/L (14-59); Alkaline Phosphatase 56 U/L (46-116); Anion Gap 12 mmol/L (4-12); Aspartate Amino Transferase 13 U/L (15-37); Bilirubin,Total 0.5 mg/dL (0.00-1.00); Blood Urea Nitrogen 13 mg/dL (7-18); Calcium 9.6 mg/dL (8.5-10.1); Carbon Dioxide 25 mmol/L (21-32); Chloride 101 mmol/L (98-108); Estimated CRCL calculation 91 ml/min; Estimated Glomerular Filt Rate > 60; Glucose 93 mg/dL (70-99); Osmolality Calculated 286 mOsm/kg (285-295); Potassium 3.6 mmol/L (3.5-5.1); Sodium 138 mmol/L (136-145)
[2024-05-30 20:55] LABS: Acetaminophen < 2 ug/mL (10-30); Ethanol < 3 mg/dL (0-6)
[2024-05-30 20:56] LABS: Salicylate 1.5 mg/dL (2.8-20.0); Thyroid Stimulating Hormone 2.54 uIU/mL (0.36-3.74)
[2024-05-30 21:07] LABS: Influenza A QL RT-PCR Negative (Negative); Influenza B QL RT-PCR Negative (Negative); RSV RNA, RT-PCR Negative (Negative); SARS-CoV-2 RNA PCR Negative (Negative)
[2024-05-30] MEDS: CIPROFLOXACIN 500 MG TAB PO (22:15)
[2024-05-30] MEDS: LORazepam (*CRX) 1 MG TABLET PO (22:15)
--- NOTE | 2024-05-30 22:20 | PC.NURSE ---
Pt given cipro po per order and explained that it is to treat her UTI and given Ativan po per order to help her rest and to help her anxiety. Pt took medication w/o any issues. Continuing to monitor w/ sitter at bedside under observation until placement at psychiatric facility is found.
--- NOTE | 2024-05-30 23:03 | PC.NURSE ---
Pt sleeping at this time, sitter remains at bedside and awaiting call back for placement. All paperwork has been faxed to [facility].
--- NOTE | 2024-05-31 00:08 | PC.NURSE ---
Dr Gutierrez signed inpt certificate that [facility] counselor Lela stated he needs to complete. Paperwork w/ inpt certificate signed and refaxed to [facility].
[2024-05-31 00:50] VITALS: BP 122/71; PULSE 80; RESP 16; TEMP 36.6; O2SAT 99
--- NOTE | 2024-05-31 01:14 | PC.NURSE ---
Call received from [facility] and report given.
[2024-05-31 01:50] VITALS: BP 131/69; PULSE 80; RESP 18; TEMP 36.6; O2SAT 99
--- NOTE | 2024-05-31 01:52 | PC.NURSE ---
Pt walked per self quietly to EMS cot for transfer w/o incident.
[2024-05-31 01:54] VITALS: BP 130/73; PULSE 85; RESP 18; TEMP 36.6; O2SAT 99
== END 2024-05-31 01:54 ==
PROVIDERS: Emergency Provider Emergency Medicine; PCP Nurse Practitioner Family
DX: F31.89 Other bipolar disorder (principal); F20.9 Schizophrenia, unspecified; N39.0 Urinary tract infection, site not specified; I10 Essential (primary) hypertension; Z79.899 Other long term (current) drug therapy; Z87.891 Personal history of nicotine dependence
CPT/HCPCS: 36415; 80053; 80307; 81001; 81025; 84443; 84484; 85025; 87637; 93005; 96372; 99285; A9270; J2359

== ENCOUNTER 2024-07-13 17:32 | Outpatient (CLI) | payer MEDICARE, SELFPAY ==
[2024-07-13 18:33] LABS: HIV 1 P24 AG Negative (Negative); HIV 1/2 AB Negative (Negative)
[2024-07-13 19:01] LABS: Beta HCG Quantitative < 1.00 mIU/mL (0-6)
[2024-07-14 08:23] LABS: Chlamydia trachomatis NOT DETECTED (NOT DETECTE); Neisseria gonorrhoeae PCR NOT DETECTED (NOT DETECTE)
[2024-07-15 21:03] LABS: Hepatitis C Virus Antibody NON-REACTIVE (NON-REACTIVE)
[2024-07-16 17:39] LABS: RPR Screen NON-REACTIVE (NON-REACTIVE)
== END 2024-07-13 17:33 | disposition home or self-care (01) ==
LOC: CHSLAB 17:33
PROVIDERS: PCP Nurse Practitioner Family; Visit Provider Nurse Practitioner Family
DX: R76.8 Other specified abnormal immunological findings in serum (principal); Z11.3 Encounter for screening for infections with a predominantly sexual mode of transmission; N91.2 Amenorrhea, unspecified; Z11.4 Encounter for screening for human immunodeficiency virus [HIV]; R10.2 Pelvic and perineal pain
CPT/HCPCS: 36415; 84702; 86592; 86695; 86696; 86803; 86900; 86901; 87491; 87591; 87806

== ENCOUNTER 2025-02-04 15:11 | Outpatient (CLI) | payer MEDICARE, SELFPAY ==
[2025-02-04 15:41] LABS: Hematocrit 42.8 % (35.0-49.0); Hemoglobin 13.5 g/dL (12.0-15.0); Immature Granulocyte Absolute 0.01 K/mm3 (0.00-0.00); Immature Granulocyte Percent A 0.2 % (0.0-0.0); Lymphocytes Absolute Auto 2.52 K/mm3 (1.10-4.50); Lymphocytes Percent Auto 41.6 % (18.0-42.0); Mean Corpuscular HGB Conc 31.5 g/dL (32-36); Mean Corpuscular Hemoglobin 27.3 pg (27.0-31.0); Mean Corpuscular Volume 86.6 fL (78.0-102.0); Mean Platelet Volume 8.6 fl (9.2-11.8); Neutrophils Absolute Auto 3.23 K/mm3 (1.70-7.20); Neutrophils Percent Auto 53.2 % (50.0-70.0); Platelet Count Result 270 K/mm3 (150-420); Red Blood Count 4.94 M/mm3 (4.20-5.40); Red Cell Distribution Width 12.4 % (11.6-14.4); White Blood Count 6.1 K/mm3 (4.8-10.8)
[2025-02-04 15:49] LABS: Hemoglobin A1C 5.2 % (<5.7)
[2025-02-04 15:53] LABS: Partial Thromboplastin Time 26.2 Sec (23.9-30.70)
[2025-02-04 16:14] LABS: Alanine Aminotransferase 28 U/L (14-59); Albumin Level 3.5 g/dL (3.4-5.0); Alkaline Phosphatase 61 U/L (46-116); Anion Gap 8 mmol/L (4-12); Aspartate Amino Transferase 13 U/L (15-37); Bilirubin,Total 0.3 mg/dL (0.00-1.00); Blood Urea Nitrogen 15 mg/dL (7-18); Calcium 8.8 mg/dL (8.5-10.1); Carbon Dioxide 27 mmol/L (21-32); Chloride 106 mmol/L (98-108); Estimated Glomerular Filt Rate > 60; Glucose 96 mg/dL (70-99); Iron 47 ug/dL (50-170); Osmolality Calculated 292 mOsm/kg (285-295); Percent Iron Saturation 16 % (12-57); Potassium 4.1 mmol/L (3.5-5.1); Sodium 141 mmol/L (136-145); Total Protein 7.2 g/dL (6.4-8.2)
[2025-02-04 16:15] LABS: Thyroid Stimulating Hormone Reflex 1.42 u/IU/mL (0.36-3.74)
[2025-02-04 16:39] LABS: Erythrocyte Sedimentation Rate 18 mm/hr (0-15)
[2025-02-04 21:03] LABS: Add Urine Microscopic? NO; Appearance Urine Clear (Clear); Bilirubin Urine Negative (Negative); Blood Urine Negative (Negative); Color Urine Light Yellow (Yellow); Glucose Urine UA Negative (Negative); Ketones Urine Negative (Negative); Leukocyte Esterase Ur Negative LEU/UL (Negative); Nitrate Urine Negative (Negative); Protein Urine Negative (Negative); Specific Grav Ur 1.025 (1.010-1.020); Urobilinogen Urine 0.2 mg/dL (0.2-1.0); pH Urine 5.5 (5.0-8.0)
--- OUTSIDE RECORDS SUMMARY | 2025-02-05 14:51 | XMS_ITS | Data Portability ---
Author Organization [facility] Address [address] [place] [address] Assessment No assessment recorded. Plan of Treatment Reminders Order Date Submit Date Provider Last Modified By Organization Details Last Modified Time Details Appointments None record ed. Lab None record ed. Referral None record ed. Procedures None record ed. Surgeries None record ed. Imaging None record ed. Medication Orders None record ed. Patient TargetsNo targets recorded. Patient Instructions Encounter Date Encounter Id Patient Instructions Last Modified By Organization Details Last Modified Time 02/19/2024 [id number] A healthy lifestyle: care [facility] Not available 02/19/2024 14:22:10 Reason for Referral None Reported. Problems No Known Problems Procedures Surgical History Date Name Laterality Status Provider Name and Address Organization Details Recorded Time IUD Removal completed REX Kapoor Attn: Accounting,[address] [facility], [place], [address], [facility] 02/19/2024 14:21:59 Imaging Results None recorded. Procedure Notes None recorded. Medical Equipment None Reported. Allergies Allergen ID Allergen Name Allergen Category Reaction Reaction Severity Criticality Documentation Date Start Date Code Code System Note Provider Name and Address Organization Details Recorded Time 138650 Keflex medicatio n vomiting Not available Not available 02/19/202403465 7 RxNorm Indira malhotra [facility] 13:57:26 [id number] Latex (substanc e) environme nt,medica tion rash Not available Not available 02/19/2024 [id number] SNOMED Indira malhotra [facility] 13:57:39 Medications Name Sig Start Date Stop Date Status Note LastModified by Organization Details LastModified Time lamotrigine 150 mg tablet TAKE ONE TABLET BY MOUTH AT BEDTIME DIRECTED 02/18 completed Not Available Not Available Not Available doxepin 50 mg capsule TAKE 1 TO 3 CAPSULES BY MOUTH AT BEDTIME NEEDED active Not Available Not Available No t Available lamotrigine 200 mg tablet active Not Available Not Available Not Available nicotine 14 mg/24 hr daily transdermal patch APPLY 1 PATCH TO HAIRLESS AREA OF SKIN EVERY DAY FOR 2 WEEKS. THEN START 7MG PATCHES. (MAY REMOVE AT BEDTIME) 02/18 completed Not Available Not Available Not Available ipratropium 0.5 mg-albutero l 3 mg (2.5 mg base)/3 mL nebulizatio n soln Inhale 1 vial (3 mL) via nebulizer every 4 to 6 hours as needed active Not Available Not Available No t Available trazodone 50 mg tablet TAKE 1-3 TABLETS BY MOUTH AT BEDTIME NEEDED active Not Available Not Available No t Available azithromyci n 250 mg tablet 02/18 completed Not Available Not Available Not Available nicotine (polacrilex ) 2 mg gum CHEW ONE PIECE OF GUM BY MOUTH EVERY 1-2 HOURS NEEDED WHEN WITHDRAWA L SYMPTOMS AND URGES TO USE TOBACCO OCCUR. 02/18 completed Not Available Not Available Not Available fluconazole 150 mg tablet TAKE 1 TABLET BY MOUTH every 72 hours 02/18 completed Not Available Not Available Not Available prazosin 1 mg capsule TAKE 1 CAPSULE BY MOUTH AT BEDTIME for ptsd 02/18 completed Not Available Not Available Not Available prednisone 20 mg tablet 02/18 completed Not Available Not Available Not Available olanzapine 10 mg tablet 02/18 completed Not Available Not Available Not Available prochlorper azine maleate 10 mg tablet 02/18 completed Not Available Not Available Not Available triamcinolo ne acetonide 0.1 % topical cream APPLY A THIN LAYER TO THE AFFECTED AREA(S) BY TOPICAL ROUTE 2 TIMES PER DAY for up to 10 days 02/18 completed Not Available Not Available Not Available ondansetron 8 mg disintegrat ing tablet DISSOLVE ONE TABLET UNDER THE TONGUE TWICE DAILY NEEDED active Not Available Not Available No t Available lamotrigine 25 mg tablet TAKE 1 TABLET BY MOUTH TWICE DAILY for mood 02/18 completed Not Available Not Available Not Available dexamethaso ne 4 mg tablet 02/18 completed Not Available Not Available Not Available lisinopril 10 mg tablet TAKE 1 TABLET BY MOUTH EVERY DAY active Not Available Not Available No t Available nicotine 21 mg/24 hr daily transdermal patch APPLY ONE PATCH TOPICALLY to skin EVERY DAY 02/18 completed Not Available Not Available Not Available olanzapine 10 mg disintegrat ing tablet DISSOLVE ONE TABLET UNDER THE TONGUE TWICE DAILY NEEDED active Not Available Not Available No t Available omeprazole 20 mg capsule,del ayed release active Not Available Not Available Not Available hydroxyzine HCl 25 mg tablet TAKE ONE TABLET BY MOUTH FOUR TIMES DAILY NEEDED active Not Available Not Available No t Available lorazepam 1 mg tablet active Not Available Not Available No t Available levofloxaci n 500 mg tablet 02/18 completed Not Available Not Available Not Available zolpidem 10 mg tablet TAKE ONE TABLET BY MOUTH ONCE DAILY DIRECTED active Not Available Not Available No t Available albuterol sulfate HFA 90 mcg/actuati on aerosol inhaler INHALE 2 PUFFS BY MOUTH EVERY 4 HOURS NEEDED active Not Available Not Available No t Available SF 5000 Plus 1.1 % dental cream Take 1 applicati on twice a day by dental route before meals for 360 days. active Not Available Not Available No t Available fluticasone propionate 50 mcg/actuati on nasal spray,suspe nsion Instill 1 spray IN EACH NOSTRIL EVERY DAY active Not Available Not Available No t Available metformin ER 500 mg tablet,exte nded release 24 hr TAKE 1 TABLET BY MOUTH EVERY DAY. 02/18 completed Not Available Not Available Not Available doxycycline hyclate 100 mg tablet TAKE ONE TABLET BY MOUTH TWICE DAILY FOR 7 DAYS 02/18 completed Not Available Not Available Not Available lamotrigine 100 mg tablet TAKE ONE TABLET BY MOUTH AT BEDTIME DIRECTED 02/18 completed Not Available Not Available Not Available fluticasone propionate 110 mcg/actuati on HFA aerosol inhaler INHALE 1 PUFF BY MOUTH TWICE DAILY active Not Available Not Available No t Available amoxicillin 875 mg-potassiu m clavulanate 125 mg tablet Take 1 tablet by mouth every 12 hours for 7 days. 02/18 completed Not Available Not Available Not Available nicotine 7 mg/24 hr daily transdermal patch APPLY ONE PATCH TOPICALLY to hairless area of skin once daily. Remove at bedtime 02/18 completed Not Available Not Available Not Available buspirone 15 mg tablet TAKE ONE TABLET BY MOUTH FOUR TIMES DAILY DIRECTED active Not Available Not Available No t Available olanzapine 5 mg disintegrat ing tablet DISSOLVE ONE TABLET UNDER THE TONGUE ONCE DAILY NEEDED active Not Available Not Available No t Available duloxetine 30 mg capsule,del ayed release active Not Available Not Available Not Available duloxetine 60 mg capsule,del ayed release active Not Available Not Available Not Available varenicline tartrate 1 mg tablet TAKE 1 TABLET BY MOUTH TWICE DAILY please keep 05/29/23 APPOINTME NT for further refills 02/18 completed Not Available Not Available Not Available varenicline tartrate 0.5 mg tablet 02/18 completed Not Available Not Available Not Available [employer] Chamber use DIRECTED with inhaler active Not Available Not Available No t Available Combivent Respimat 20 mcg-100 mcg/actuati on solution for inhalation active Not Available Not Available N ot Available Arnuity Ellipta 100 mcg/actuati on powder for inhalation active Not Available Not Available N ot Available Caplyta 42 mg capsule TAKE ONE CAPSULE BY MOUTH ONCE DAILY active Not Available Not Available No t Available Vitals Date Recorded Body height Body mass index (BMI) Body weight Heart rate Respiratory rate Systolic blood pressure Diastolic blood pressure Provider Name and Address Organization Details Last Updated DateTime 4 170.18 cm 41.5 kg/m2 275158. 38 g 101 /min 16 /min 139 mm[Hg] 90 mm[Hg] Indira Holland Aroldo [facility] 14:08:33 Social History Question Answer Notes LastModified by Organizat ion Details LastModified Time Tobacco Smoking Status Former Smoker Indira Holland Aroldo null, [place] - [facility] 02/19/2024 14:03:25 What Is Your Level Of Alcohol Consumption? None Information not available 02/19/2024 In The 14 Days Before Symptom Onset, Have You Had Close Contact With A Laboratory-confirm ed COVID-19 While That Case Was Ill? No [email or web address] Information n ot available 02/19/2024 In The 14 Days Before Symptom Onset, Have You Had Close Contact With A Person Who Is Under Investigation For COVID-19 While That Person Was Ill? No [email or web address] Information not available 02/19/2024 Have You Been To An Area Known To Be High Risk For COVID-19? No Information not available 02/19/2024 What Was The Date Of Your Most Recent Tobacco Screening? 02/19/2024 [email or web address] Information not available 02/19/2024 What Is Your Relationship Status? [email or web address] Information not available 02/19/2024 Are You Sexually Active? Yes [email or web address] Information not available 02/19/2024 Do You Have Smoke And Carbon Monoxide Detectors In Your Home? Yes Information not available 02/19/2024 Are You Passively Exposed To Smoke? No [email or web address] Information no t available 02/19/2024 Do You Use Any Illicit Or Recreational Drugs? No [email or web address] Information not available 02/19/2024 Has Tobacco Cessation Counseling Been Provided? No [email or web address] Information not available 02/19/2024 Do You Or Have You Ever Used Any Other Forms Of Tobacco Or Nicotine? No [email or web address] Information not available 02/19/2024 Sex: Female Functional Status None recorded. Mental Status None recorded. Family History Relationship Description Onset Age of this Age Resolved Age Notes LastModified by Organization Details LastModified Time Father No current problems or disability [email or web address] Not available 02/18 14:03:11 Mother No current problems or disability Not available 02/18 14:03:11 Medical History No medical history recorded. Gynecological History Statement/Question Response Flow Light Date of LMP Menses Monthly N Date of Last Pap Smear Age at Menarche 14 Current Control Method IUD Age at First Child 23 LMP Unknown Obstetrics History GPAL:G 1 P 1 0 1 1 Type Value Full Term 1 Spontaneous 1 Living 1 Total 1 Past Encounters Encounter ID Performer Location Encounter Start Date Encounter Closed Date Diagnosis/Indication Diagnosis SNOMED-CT Code Diagnosis ICD10 Code Diagnosis Note [id number] REX Kapoor 14 OB [address] [facility] [place] [address] 02/19/2024 13:34:13 02/20/2024 10:56:40 Removal of intrauterine contraceptive device done [id number] 41615 Z30.432 IUD removed without issue. Pt verbalizes that fertility will resume and if trying to become , she needs to begin vits now. Pt verbalized understand ing. Pt will follow up as needed for annual, sooner if needed or if pt would like new form of control. Morbid obesity [id number] E66.01 Discussed diet and weight loss. Discussed making healthier food choices and increasing exercise. Discussed going to a medic technician. Health Concerns Section Related Observation LastModified by Organization Detai ls LastModified Time None Recorded Concern Status LastModified by Organization Details LastModified Time None Recorded Advance Directives Directive None Recorded Payers Encounter Date Sequence Insurance Name Policy Number Policy Chapman Covered Member ID Chapman Member ID Guarantor Name 02/19/2024 1 [facility] (MEDICARE REPLACEMENT/A DVANTAGE - HMO) [id number] Fariha Sparks [id number] Fariha Sparks Notes Date Note Type Note Provider Name and Address Organization Details Recorded Time 02/19/2024 text/html Annual GYNReport ed bypatient.History: no gynecologic complaints Menstrual cycle:Normal menses Urinary symptoms:No hematuria; No incontinence Vulva:No genital lesion Vagina:Normal vaginal discharge Breast:No breast pain; No breast lump; No nipple discharge Sexual complaints:No sexual complaints; No pain during intercourse; Normal libido Menopausal Symptoms:No menopausal symptoms; Normal vaginal lubrication Psychological symptoms:No depression; No anxiety; No PMDD Preventive measures:Encourage self breast examination; Encourage regular exercise; Encourage no tobacco use; Encourage regular mammograms starting age [age] yo fe here for removal of iud- states normal pap 6 months ago, will obtain records- LAITH Kapoor-BC Attn: Accounting[address] [place], [address], [facility] 02/19/2024 14:22:33 OBGyn Episode Ob Episode Information Episode Created Date Number of Fetuses Patient Bloodtype Patient rh Status Prepregnancy Weight lbs Domestic Partner Domestic Partner Phone Father Name Investments Manager Status 02/19/20 24 1 CLOSED Fetus Data First Name Last Name Admitted to NICU Weight (g) Sex Living Outcome Pediatric Complications Fetus ID Race Codes Race Delivery Type M [id number] Vaginal Domenic Calculation Initial Domenic Date Initial Exam Date Initial Exam Provider Initial Ultrasound Date Last Menstrual Period Date Ultra Sound Weeks Gestation 0 Eighteen To Twenty Week Domenic Update Ultra Sound Date Fundal Height At Umbil Quickening Date Ultra Sound Latest Weeks Gestation Final Domenic Confirmed By Final Domenic Confirmed Date Final Domenic Date Ultra Sound Latest Days Gestation 0 0 Menstrual History Last Menstrual Date Menses Monthly On Bcp Conception Prior Menses Frequency Hcg Plus Date Menarche Onset Age Delivery Information Delivery Date Delivery Type Labor Anesthesia Weeks Gestation Incision Type Labor Labor Length Hrs Delivered By Post Complications Tubal Sterilization Discharge Date Comments 8 Discharge Information Feeding Method Contraceptive Method Maternal HG B and HCT Levels
[2025-02-07 08:43] LABS: Thyroid Peroxidase Antibodies 2 IU/mL (<9)
[2025-02-08 01:58] LABS: Vitamin D 25 Hydroxy 33 ng/mL (30-100)
== END 2025-02-04 15:12 | disposition home or self-care (01) ==
LOC: CHSLAB 15:12
PROVIDERS: PCP Nurse Practitioner Family; Visit Provider Nurse Practitioner Family
DX: Z00.00 Encounter for general adult medical examination without abnormal findings (principal); R53.83 Other fatigue; R23.3 Spontaneous ecchymoses; R76.8 Other specified abnormal immunological findings in serum; R35.0 Frequency of micturition; R49.0 Dysphonia; R73.03 Prediabetes
CPT/HCPCS: 36415; 80053; 81003; 82306; 83036; 83540; 83550; 84443; 85025; 85652; 85730; 86225; 86235; 86376

== ENCOUNTER 2025-07-28 12:20 | Outpatient (CLI) | payer OTHER, SELFPAY ==
[2025-07-28 12:52] LABS: Hematocrit 42.5 % (35.0-49.0); Hemoglobin 13.5 g/dL (12.0-15.0); Immature Granulocyte Percent A 0.5 % (0.0-0.0); Lymphocytes Absolute Auto 2.09 K/mm3 (1.10-4.50); Mean Corpuscular HGB Conc 31.8 g/dL (32-36); Mean Corpuscular Hemoglobin 26.9 pg (27.0-31.0); Mean Corpuscular Volume 84.8 fL (78.0-102.0); Nucleated Red Blood Cells Absolute Auto 0.00 K/mm3 (0.00-0.00); Nucleated Red Blood Cells Perc 0.0 % (0-0.0); Platelet Count Result 284 K/mm3 (150-420); Red Blood Count 5.01 M/mm3 (4.20-5.40); White Blood Count 6.5 K/mm3 (4.8-10.8)
[2025-07-28 13:28] LABS: Iron 63 ug/dL (37-170)
[2025-07-28 13:36] LABS: Percent Iron Saturation 18 % (20-50)
[2025-07-28 14:03] LABS: Ferritin 9.67 ng/mL (6.24-137)
[2025-07-29 07:09] LABS: Hep A Ab, Total Positive (Negative); Varicella-Zoster Ab, IgG Non Reactive (Non Reactive)
[2025-08-01 11:12] LABS: Hepatitis A Antibody IgM Negative
== END 2025-07-28 12:21 | disposition home or self-care (01) ==
PROVIDERS: PCP Nurse Practitioner Family; Visit Provider Nurse Practitioner Family
DX: D50.9 Iron deficiency anemia, unspecified (principal); R76.89 Other specified abnormal immunological findings in serum
CPT/HCPCS: 36415; 82728; 83540; 83550; 85025; 86708; 86787

== ENCOUNTER 2025-09-06 13:11 | Outpatient (CLI) | payer OTHER, MEDICARE, MEDICAID, SELFPAY ==
--- NOTE | ~2025-09-06 | MM_ITS ---
EXAMINATION: MM screening lanette BI w maik HISTORY: Screening. TECHNIQUE: Craniocaudal and mediolateral oblique 3-D tomosynthesis images were obtained and synthetic 2-D images were generated. CAD analysis was submitted and interpreted. COMPARISON: None available. BREAST PARENCHYMAL COMPOSITION: Not Dense: There are scattered areas of fibroglandular FINDINGS: No suspicious masses are seen. There are no suspicious calcifications. No unexplained architectural distortion is seen. There are no skin or nipple abnormalities identified. There is no adenopathy seen on the images submitted. IMPRESSION: No mammographic evidence to suggest malignancy is seen. The patient may return to screening mammography as per ACR guidelines. BI-RADS 1 - Negative. Reviewed, dictated and finalized at location B. KEEPER
== END 2025-09-06 13:12 | disposition home or self-care (01) ==
PROVIDERS: PCP Nurse Practitioner Family; Visit Provider Nurse Practitioner Family
DX: Z12.31 Encounter for screening mammogram for malignant neoplasm of breast (principal); Z80.3 Family history of malignant neoplasm of breast
CPT/HCPCS: 77063; 77067